=== PATIENT | male | born 1995 | race Caucasian/White ===

== ENCOUNTER 2019-10-27 19:47 | Emergency (ER) | payer SELFPAY ==
[~2019-10-27] VITALS: Ht 165.1 cm; Wt 68.0 kg
[2019-10-27] MEDS ORDERED: IBUPROFEN 600MG TABLET PO ONE (20:15)
[2019-10-27 22:21] VITALS: BP 122/88
== END 2019-10-27 23:19 | disposition home or self-care (01) ==
LOC: ER 19:47
DX: S92.332A Displaced fracture of third metatarsal bone, left foot, initial encounter for closed fracture (principal); S92.342A Displaced fracture of fourth metatarsal bone, left foot, initial encounter for closed fracture; F10.129 Alcohol abuse with intoxication, unspecified; W18.39XA Other fall on same level, initial encounter; Y93.89 Activity, other specified; Y92.89 Other specified places as the place of occurrence of the external cause; Y99.8 Other external cause status; Y90.9 Presence of alcohol in blood, level not specified
CPT/HCPCS: 73610; 73630; 99283; Z7610

== ENCOUNTER 2024-05-02 08:43 | Emergency (ER) | payer MEDICAID, OTHER ==
[~2024-05-02] VITALS: Ht 165.1 cm; Wt 72.6 kg
[2024-05-02 08:51] VITALS: O2SAT 98
[2024-05-02 09:08] LABS: BASOPHILS % 0.3 % (0.0-2.0); EOSINOPHILS % 0.1 % (0.0-5.0); HEMATOCRIT. 43.5 % (42.0-52.0); HEMOGLOBIN. 14.6 g/dL (14.0-18.0); MEAN CORPUSCULAR HEMOGLOBIN 29.8 pg (28.0-32.0); MEAN CORPUSCULAR HGB CONC 33.7 g/dL (31.0-37.0); MEAN CORPUSCULAR VOLUME 88.5 fL (80.0-94.0); MEAN PLATELET VOLUME 11.4 fl (7.4-10.4); MONOCYTES % 7.2 % (2.0-8.0); NEUTROPHILS % 80.4 % (40.0-76.0); PLATELET 120 x1000/uL (130-400); RED BLOOD CELL COUNT 4.91 mill/uL (4.7-6.1); RED CELL DISTRIBUTION WIDTH 13.5 % (11.6-14.6); WHITE BLOOD COUNT 8.1 x1000/uL (4.5-11.0)
[2024-05-02 09:16] LABS: CHLORIDE 103 mEq/L (98-107); SODIUM 136 mEq/L (136-145)
[2024-05-02 09:17] LABS: CARBON DIOXIDE 24 mEq/L (21-32)
[2024-05-02 09:18] LABS: CALCIUM 9.8 mg/dL (8.7-10.4)
[2024-05-02 09:22] LABS: CREATININE 0.9 mg/dL (0.6-1.3); GLUCOSE 112 mg/dL (70-105)
[2024-05-02 09:23] LABS: UREA NITROGEN BLOOD 16 mg/dL (9-23)
[2024-05-02] MEDS: DIPHENHYDRAMINE 50MG/ML VIAL IV ONE (10:11)
[2024-05-02] MEDS: KETOROLAC 15MG/ML VIAL IV ONE (10:11)
[2024-05-02] MEDS: SODIUM CHLORIDE 0.9% 1,000 ML IV ONE (10:12)
[2024-05-02] MEDS: METOCLOPRAMIDE HCL 10MG/2ML VIAL IV ONE (10:12)
[2024-05-02 13:28] VITALS: BP 112/58; PULSE 99; RESP 19; TEMP 98.1
== END 2024-05-02 13:30 | disposition home or self-care (01) ==
LOC: ER 08:59
DX: R51.9 Headache, unspecified (principal)
CPT/HCPCS: 80048; 85025; 36415; 70450; 96361; 96374; 96375; 99285; J1200; J1885; J2765; J7030; Z7610 ×5

== ENCOUNTER 2024-06-08 20:06 | Emergency (ER) | payer OTHER ==
[~2024-06-08] VITALS: Ht 165.1 cm; Wt 75.0 kg
[2024-06-08 20:22] VITALS: BP 128/75; PULSE 69; RESP 18; TEMP 98.3; O2SAT 99
[2024-06-08] MEDS ORDERED: IBUP-2030 MT (21:05)
[2024-06-08] MEDS ORDERED: AMOX1TAB16 MT (21:05)
== END 2024-06-08 21:11 | disposition home or self-care (01) ==
LOC: ER 20:06
DX: K04.7 Periapical abscess without sinus (principal)
CPT/HCPCS: 99283